=== PATIENT | female | born 1970 | race Caucasian/White ===

== ENCOUNTER 2017-05-26 06:46 | Day surgery (SDC) | payer OTHER ==
[~2017-05-26] VITALS: Ht 170.2 cm; Wt 71.2 kg
[2017-05-26 07:02] VITALS: BP 136/75
[2017-05-26 09:47] VITALS: BP 106/80
== END 2017-05-26 09:15 | disposition home or self-care (01) ==
LOC: GI 06:46 → OR 08:30 → GI 09:15
PROVIDERS: Internal Medicine Gastroenterology
PROC: 0DB68ZX Excision of Stomach, Via Natural or Artificial Opening Endoscopic, Diagnostic (ICD-10-PCS; principal; 2017-05-26 07:30)
DX: K29.70 Gastritis, unspecified, without bleeding (principal); R63.4 Abnormal weight loss; R68.81 Early satiety; F20.9 Schizophrenia, unspecified; Z68.24 Body mass index [BMI] 24.0-24.9, adult
CPT/HCPCS: 43235; J1200; J1610; J2250; J2310; J3010; J3490

== ENCOUNTER 2017-08-06 09:40 | Emergency (ER) | payer OTHER ==
[~2017-08-06] VITALS: Ht 170.2 cm; Wt 71.3 kg
[2017-08-06 09:58] VITALS: Ht 170.2 cm; Wt 71.3 kg
[2017-08-06 12:38] VITALS: BP 117/68
== END 2017-08-06 12:38 | disposition home or self-care (01) ==
LOC: ED 09:40
DX: S82.832A Other fracture of upper and lower end of left fibula, initial encounter for closed fracture (principal); J44.9 Chronic obstructive pulmonary disease, unspecified; X58.XXXA Exposure to other specified factors, initial encounter; Y93.01 Activity, walking, marching and hiking; Y92.89 Other specified places as the place of occurrence of the external cause; Y99.8 Other external cause status